=== PATIENT | female | born 1990 | race Caucasian/White ===

== ENCOUNTER 2019-06-04 18:33 | Emergency (ER) | payer BC, OTHER ==
[2019-06-04 21:47] VITALS: BP 118/68
--- NOTE | 2019-06-05 00:39 | ED ---
GI/ HPI - HPI Summary HPI Summary: Patient is a 28-year-old female who presents emergency department for rectal pain times several weeks. Patient states she has a history of hemorrhoids and does a lot of heavy lifting at work. Patient states she worked tonight and pain increased. Patient has been using [id number] hemorrhoid cream without improvement. Patient notes some mild abdominal pain. Denies fever, vomiting, diarrhea, constipation, blood in stools. Symptoms are mild in severity. No current modifying factors. - History of Current Complaint Chief Complaint: EDAbdPain Time Seen by Provider: 06/04/19 21:15 Stated Complaint: ABD PAIN PER PT Hx Obtained From: Patient Hx Last Menstrual Period: 07/13/14 Pain Intensity: 6 - Allergy/Home Medications Allergies/Adverse Reactions: Allergies Allergy/AdvReac Type Severity Reaction Status Date / Time sertraline Allergy Unknown Verified 06/04/19 20:44 Reaction Details Home Medications: Home Medications Norelgestromin/Ethin.estradiol [Xulane Patch] 1 each TOPICAL WEEKLY 06/04/19 [ History Confirmed 06/04/19] Valacyclovir HCl [Valacyclovir] 1 tab PO DAILY 06/04/19 [History Confirmed 06/04] Venlafaxine ER (NF) [Effexor ER (NF)] 150 mg PO DAILY 06/04/19 [History Confirmed 06/04/19] PMH/Surg Hx/FS Hx/Imm Hx Previously Healthy: Yes Endocrine/Hematology History: Denies: Hx Diabetes, Hx Thyroid Disease Cardiovascular History: Denies: Hx Hypertension Respiratory History: Denies: Hx Asthma, Hx Chronic Obstructive Pulmonary Disease (COPD) GI History: Denies: Hx Ulcer - Surgical History Surgery Procedure, Year, and Place: Jan 14 2010-post partem repair 2 years ago. laparoscopy ,. 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 Negative: Vomiting, Diarrhea, Nausea Genitourinary: Negative Negative: dysuria All Other Systems Reviewed And Are Negative: Yes Physical Exam Triage Information Reviewed: Yes Vital Signs On Initial Exam: Initial Vitals Temp Pulse Resp BP Pulse Ox 97.8 F 77 16 130/89 98 06/04/19 18:40 06/04/19 18:40 06/04/19 18:40 06/04/19 18:40 06/04/19 18:40 Vital Signs Reviewed: Yes Appearance: Positive: Well-Appearing - Pt. lying on bed in NAD. Skin: Positive: Warm, Dry Head/Face: Positive: Normal Head/Face Inspection Eyes: Positive: Normal, EOMI Neck: Positive: Supple Abdomen Description: Positive: Nontender, Soft, Other: - Rectal exam performed with pt.'s nurse, Kerry LEUNG. Small external hemorrhoids noted. No thrombus. No erythema or induration. No anal fissure. KOBY reveals internal hemorrhoids as well. No bleeding. Neurological: Positive: Normal, CN Intact II-III Psychiatric: Positive: Affect/Mood Appropriate Diagnostics - Vital Signs Vital Signs Temp Pulse Resp BP Pulse Ox 06/04/19 21:47 98.2 F 79 16 118/68 98 06/04/19 21:07 79 118/68 98 06/04/19 21:00 81 98 06/04/19 20:37 79 121/81 98 06/04/19 20:36 78 98 06/04/19 18:40 97.8 F 77 16 130/89 98 - Laboratory Lab Statement: Any lab studies that have been ordered have been reviewed, and results considered in the medical decision making process. GIGU Course/Dx - Course Course Of Treatment: Patient presenting with hemorrhoids. No other significant findings on exam. Proctofoam prescribed. Advised patient to avoid straining decreased fluids and fiber in diet. To follow-up with PCP and return to the ER if symptoms change or worsen. Patient understands and agrees with plan. - Diagnoses Differential Diagnoses - Female: Hemorrhoids, Pruitis Ani, Rectal Fissure Provider Diagnoses: Hemorrhoids Discharge ED - Sign-Out/Discharge Documenting (check all that apply): Patient Departure Patient Received Moderate/Deep Sedation with Procedure: No - Discharge Plan Condition: Good Disposition: HOME Prescriptions: Hydrocortisone/Pramoxine [Proctofoam Hc 1-1 %] 1 aer IN TID #21 aer Patient Education Materials: Hemorrhoids (ED) Referrals: Dimitry LONG,Kota Flores [Primary Care Provider] - Additional Instructions: Schedule a follow up appointment with PCP within one week Use medication as directed Increase fluids and fiber in diet Avoid heavy lifting and straining Return to ER if symptoms change or worsen - Billing Disposition and Condition Condition: GOOD Disposition: Home
== END 2019-06-04 21:47 | disposition home or self-care (01) ==
LOC: ED 18:33
DX: K64.9 Unspecified hemorrhoids (principal); K62.89 Other specified diseases of anus and rectum; Z87.891 Personal history of nicotine dependence; Z79.899 Other long term (current) drug therapy
CPT/HCPCS: 99282